=== PATIENT | female | born 1955 | race Two or more races ===

== ENCOUNTER 2024-07-26 18:22 | Emergency (ER) | payer MEDICAID ==
[~2024-07-26] VITALS: Ht 162.6 cm; Wt 63.0 kg
[2024-07-26 18:27] VITALS: BP 159/89; PULSE 77; RESP 18; TEMP 98.3; O2SAT 98
[2024-07-26] MEDS: ACETAMINOPHEN 500 MG TABLET PO ONE (22:30)
[2024-07-26] MEDS ORDERED: ACET-2247 PO (23:09)
== END 2024-07-26 23:22 | disposition home or self-care (01) ==
LOC: EMS 18:22
DX: S40.012A Contusion of left shoulder, initial encounter (principal); W22.09XA Striking against other stationary object, initial encounter; Y93.89 Activity, other specified; Y92.89 Other specified places as the place of occurrence of the external cause; Y99.8 Other external cause status
CPT/HCPCS: 99284; 73030-TC; 73590-TC; Z7502; Z7610